=== PATIENT | female | born 1990 | race Caucasian/White ===

== ENCOUNTER 2024-01-06 13:47 | Emergency (ER) | payer MEDICAID, SELFPAY ==
[2024-01-06 13:52] VITALS: BP 147/85; PULSE 92; RESP 19; O2SAT 98; BMI 30.4
--- NOTE | 2024-01-06 13:54 | ED.EAR ---
HPI - Ear Problem General Chief complaint: Ear Problems Stated complaint: cant hear Related Data Allergies Allergy/AdvReac Type Severity Reaction Status Date / Time Penicillins [PENICILLINS] Allergy Severe ANAPHYLAXIS Verified 01/06/24 13:54 Sulfa (Sulfonamide Allergy Severe SWELLING Verified 01/06/24 13:54 Antibiotics) SOB, [SULFA (SULFONAMIDE anaphylaxis ANTIBIOTICS)] bee pollen [BEE STINGS] Allergy Unknown UNKNOWN Verified 01/06/24 13:54 penicillin V Allergy Unknown anaphylaxix Verified 01/06/24 13:54 PMFSH Social History Social History Advance Directives: No Advance Directives Information Provided: No Physical Exam Vital Signs: Vital Signs: Last Vital Signs Pulse 92 01/06/24 13:52 Resp 19 01/06/24 13:52 BP 147/85 H 01/06/24 13:52 Pulse Ox 98 01/06/24 13:52 O2 Del Method Room Air 01/06/24 13:52 BMI result Body Mass Index 30.4 Course Course Course Narrative: This is a Rapid Medical Examination (RME) performed by Barry Fonseca PA-C in triage. Full HPI, ROS, assessment and treatment plan per primary provider in the Main ED. 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 Examination with bilateral EAC's with moderate cerumen bilaterally but not completely impacted. Partially visualized TMs are not erythmatous of perforated. Hearing is decreased more on the right side than the left. No tenderness or swelling of the mastroids bilaterally. Neurologically grossly intact in triage. No distress. Plan: cerumen removal and re-evaluation of hearing Reevaluation(s) Reevaluation #1: patient eloped from the waiting room prior to full evaluation, treatment and reassessment Discharge Plan Discharge Clinical Impression: Bilateral impacted cerumen Patient Disposition: Left W/O Completing Treatment Discharge Date/Time: 01/06/24 18:26
== END 2024-01-06 18:26 | disposition left against medical advice (07) ==
LOC: HO.ED 18:23
PROVIDERS: Emergency Provider Emergency Medicine
DX: H61.23 Impacted cerumen, bilateral (principal); H92.03 Otalgia, bilateral
CPT/HCPCS: 99281